=== PATIENT | male | born 1965 | race African-American/Black ===

== ENCOUNTER 2018-08-01 16:19 | Emergency (ER) | payer BC, OTHER | END 2018-08-01 16:52 | disposition home or self-care (01) | LOC: BURERS 16:19 | DX: G57.12 Meralgia paresthetica, left lower limb (principal); E78.5 Hyperlipidemia, unspecified; I10 Essential (primary) hypertension; F17.210 Nicotine dependence, cigarettes, uncomplicated; Z79.899 Other long term (current) drug therapy | CPT/HCPCS: 99283 ==

== ENCOUNTER 2019-04-26 11:41 | Emergency (ER) | payer OTHER ==
[2019-04-26] MEDS ORDERED: Nitroglycerin 0.4 MG TAB 1 EACH ONE (11:51)
[2019-04-26] MEDS ORDERED: Nitroglycerin 50 MG/250 ML BOT 250 ML ONE (11:53)
[2019-04-26 12:12] LABS: #Basophils 0.1 thou/uL (0.0-0.2); #Eosinphils 0.2 thou/uL (0.0-0.7); #Lymphocytes 2.5 thou/uL (1.20-3.40); #Monocytes 0.5 thou/uL (0.11-0.59); #Neutrophils 3.9 thou/uL (1.40-6.50); %Basophils 1.5 % (0.0-1.0); %Lymphocytes 34.2 % (21.0-51.0); %Neutrophils 54.3 % (42.0-75.0); Hemoglobin 14.4 g/dL (14.0-18.0); Mean Corpuscular HGB CONC 31.6 g/dL (32.0-36.0); Mean Corpuscular Hemoglobin 31.4 pg (27.0-31.0); Mean Corpuscular Volume 99.6 fL (78.0-98.0); Mean Platelet Volume 7.1 fL (7.4-10.4); Platelet Count 236 thou/uL (130-400); RBC Distribution Width 12.5 % (11.5-14.5); Red Blood Cell (RBC) Count 4.59 mill/uL (4.70-6.10); White Blood Cell (WBC) Count 7.2 thou/uL (4.8-10.8)
[2019-04-26 12:22] LABS: ALT (SGPT) 33 U/L (8-55); AST (SGOT) 26 U/L (5-34); Albumin 3.8 g/dL (3.5-5.0); Alkaline Phosphatase 83 U/L (40-150); Anion Gap 13 mmol/L (10-20); BUN (Urea Nitrogen) 13 mg/dL (8.4-25.7); Bilirubin, Total 0.5 mg/dL (0.2-1.2); Calc. Creatinine Clearance 0 mL/min (70-130); Calcium 9.3 mg/dL (7.8-10.44); Carbon Dioxide 27 mmol/L (22-29); Chloride 104 mmol/L (98-107); Estimated GFR-MDRD Greater than 90; Globulin 3.4 g/dL (2.4-3.5); Glucose 133 mg/dL (70-105); Lipase 21 U/L (8-78); Potassium 3.7 mmol/L (3.5-5.1); Protein, Total 7.2 g/dL (6.0-8.3); Sodium 140 mmol/L (136-145)
--- NOTE | 2019-04-26 21:09 | RAD ---
PORTABLE CHEST: 04/26/19 An AP portable film at 1206 is compared with a 12/25/10 study. The heart is normal in size and the lungs are clear. No infiltrate or effusion was seen. There is no vascular congestion or edema. IMPRESSION: No acute thoracic finding. POS: HOME
== END 2019-04-26 13:00 | disposition short-term general hospital (02) ==
LOC: BURERS 11:41
DX: R07.9 Chest pain, unspecified (principal); R94.31 Abnormal electrocardiogram [ECG] [EKG]; E78.5 Hyperlipidemia, unspecified; I10 Essential (primary) hypertension; F17.210 Nicotine dependence, cigarettes, uncomplicated; Z79.899 Other long term (current) drug therapy
CPT/HCPCS: 71045; 80053; 83690; 84484; 85025; 93005; 94760; 96365

== ENCOUNTER 2019-05-16 06:45 | Emergency (ER) | payer OTHER ==
[2019-05-16 07:26] LABS: #Basophils 0.1 thou/uL (0.0-0.2); #Eosinphils 0.5 thou/uL (0.0-0.7); #Lymphocytes 2.3 thou/uL (1.20-3.40); #Neutrophils 6.6 thou/uL (1.40-6.50); %Basophils 1.2 % (0.0-1.0); %Eosinophils 4.4 % (0.0-10.0); %Lymphocytes 21.7 % (21.0-51.0); %Monocytes 9.7 % (0.0-10.0); %Neutrophils 62.9 % (42.0-75.0); Hemoglobin 9.6 g/dL (14.0-18.0); Mean Corpuscular HGB CONC 31.7 g/dL (32.0-36.0); Mean Corpuscular Hemoglobin 30.8 pg (27.0-31.0); Mean Platelet Volume 5.4 fL (7.4-10.4); Platelet Count 684 thou/uL (130-400); RBC Distribution Width 13.2 % (11.5-14.5); Red Blood Cell (RBC) Count 3.11 mill/uL (4.70-6.10); White Blood Cell (WBC) Count 10.5 thou/uL (4.8-10.8)
[2019-05-16 07:30] LABS: INR-International Normal Ratio 1.1; PTT 35.5 SEC (22.9-36.1); Prothrombin Time 14.3 SEC (12.0-14.7)
[2019-05-16 07:36] LABS: Anion Gap 13 mmol/L (10-20); BUN (Urea Nitrogen) 13 mg/dL (8.4-25.7); Calc. Creatinine Clearance 0 mL/min (70-130); Calcium 9.2 mg/dL (7.8-10.44); Carbon Dioxide 26 mmol/L (22-29); Chloride 104 mmol/L (98-107); Estimated GFR-MDRD Greater than 90; Glucose 105 mg/dL (70-105); Potassium 4.1 mmol/L (3.5-5.1); Sodium 139 mmol/L (136-145)
[2019-05-16 07:42] LABS: Bilirubin Negative (Negative); Blood, Urine Large (Negative); Clarity Cloudy (Clear); Glucose, Urine (Dipstick) Negative (Negative); Leukocyte Small (Negative); Nitrite Negative (Negative); Protein, Urine (Dipstick) Negative (Neg-Trace); Urobilinogen 0.2 mg/dL (Less than 2)
[2019-05-16 07:53] LABS: Bacteria/HPF 1+ HPF (None Seen); RBC/HPF Greater than 50 HPF (0-3); WBC/HPF 0-3 HPF (0-3)
== END 2019-05-16 08:02 | disposition home or self-care (01) ==
LOC: BURERS 06:45
DX: R31.9 Hematuria, unspecified (principal); E78.5 Hyperlipidemia, unspecified; I10 Essential (primary) hypertension; I25.10 Atherosclerotic heart disease of native coronary artery without angina pectoris; Z87.891 Personal history of nicotine dependence; Z79.82 Long term (current) use of aspirin; Z79.891 Long term (current) use of opiate analgesic; Z79.899 Other long term (current) drug therapy
CPT/HCPCS: 36415; 80048; 81003; 81015; 85025; 85610; 85730; 99283

== ENCOUNTER 2019-09-12 20:08 | Emergency (ER) | payer OTHER, SELFPAY | END 2019-09-12 20:45 | disposition left against medical advice (07) | LOC: BURERS 20:08 | DX: R07.9 Chest pain, unspecified (principal); E78.5 Hyperlipidemia, unspecified; E78.00 Pure hypercholesterolemia, unspecified; I10 Essential (primary) hypertension; I25.10 Atherosclerotic heart disease of native coronary artery without angina pectoris; Z87.891 Personal history of nicotine dependence; Z79.899 Other long term (current) drug therapy; Z79.82 Long term (current) use of aspirin | CPT/HCPCS: 93005 ==

== ENCOUNTER 2020-11-02 16:17 | Emergency (ER) | payer BC, OTHER, SELFPAY ==
[2020-11-02] MEDS ORDERED: Dicyclomine 20 MG TAB ONE (16:37)
[2020-11-03 22:22] LABS: SARS-CoV-2 PCR by NAA Not Detected (NotDetected)
== END 2020-11-02 17:05 | disposition home or self-care (01) ==
LOC: BURERS 16:17
DX: R19.7 Diarrhea, unspecified (principal); R50.9 Fever, unspecified; R10.10 Upper abdominal pain, unspecified; Z20.822 Contact with and (suspected) exposure to COVID-19; E78.5 Hyperlipidemia, unspecified; E78.00 Pure hypercholesterolemia, unspecified; I10 Essential (primary) hypertension; F17.210 Nicotine dependence, cigarettes, uncomplicated
CPT/HCPCS: 87635; 99406; U0003; U0005

== ENCOUNTER 2021-05-05 15:05 | Emergency (ER) | payer BC ==
[2021-05-05] MEDS ORDERED: Ibuprofen 200 MG TAB ONE (15:36)
== END 2021-05-05 16:14 | disposition home or self-care (01) ==
LOC: BURERS 15:05
DX: M65.88 Other synovitis and tenosynovitis, other site (principal); E78.5 Hyperlipidemia, unspecified; I10 Essential (primary) hypertension; E78.00 Pure hypercholesterolemia, unspecified; F17.210 Nicotine dependence, cigarettes, uncomplicated; I25.10 Atherosclerotic heart disease of native coronary artery without angina pectoris; Z79.899 Other long term (current) drug therapy; Z79.82 Long term (current) use of aspirin

== ENCOUNTER 2021-08-04 00:36 | Emergency (ER) | payer BC ==
[2021-08-04 01:32] LABS: #Basophils 0.1 thou/uL (0.0-0.2); #Eosinphils 0.4 thou/uL (0.0-0.7); #Monocytes 0.5 thou/uL (0.11-0.59); %Basophils 1.5 % (0.0-1.0); %Eosinophils 4.6 % (0.0-10.0); %Lymphocytes 49.9 % (21.0-51.0); %Monocytes 6.6 % (0.0-10.0); %Neutrophils 37.4 % (42.0-75.0); Mean Corpuscular HGB CONC 33.3 g/dL (32.0-36.0); Mean Corpuscular Hemoglobin 32.8 pg (27.0-31.0); Mean Corpuscular Volume 98.5 fL (78.0-98.0); Mean Platelet Volume 7.8 fL (7.4-10.4); Platelet Count 240 thou/uL (130-400); RBC Distribution Width 11.9 % (11.5-14.5); Red Blood Cell (RBC) Count 4.26 mill/uL (4.70-6.10)
[2021-08-04 01:36] LABS: ALT (SGPT) 27 U/L (8-55); AST (SGOT) 24 U/L (5-34); Albumin 3.7 g/dL (3.5-5.0); Alkaline Phosphatase 74 U/L (40-110); Anion Gap 10 mmol/L (10-20); BUN (Urea Nitrogen) 14 mg/dL (8.4-25.7); Bilirubin, Total 0.4 mg/dL (0.2-1.2); Calc. Creatinine Clearance 0 mL/min (70-130); Calcium 9.6 mg/dL (7.8-10.44); Carbon Dioxide 29 mmol/L (22-29); Chloride 107 mmol/L (98-107); Globulin 2.3 g/dL (2.4-3.5); Glucose 122 mg/dL (70-105); Potassium 3.3 mmol/L (3.5-5.1); Sodium 143 mmol/L (136-145)
== END 2021-08-04 01:42 | disposition left against medical advice (07) ==
LOC: BURERS 00:36
DX: R00.1 Bradycardia, unspecified (principal); R53.83 Other fatigue; I10 Essential (primary) hypertension; E78.5 Hyperlipidemia, unspecified; F17.210 Nicotine dependence, cigarettes, uncomplicated; Z79.82 Long term (current) use of aspirin
CPT/HCPCS: 71045; 80053; 84443; 84484; 85025; 93005; 94760

== ENCOUNTER 2022-09-09 17:28 | Emergency (ER) | payer BC, OTHER ==
[2022-09-09] MEDS ORDERED: Lidocaine Viscous Sol 2% 15 ml UD Cup ONE (18:26)
[2022-09-09] MEDS ORDERED: Dicyclomine 20 MG TAB ONE (18:26)
[2022-09-09] MEDS ORDERED: Mag-Al Plus 1200 MG/1200 MG/120 MG/30 ML UDCUP ONE (18:26)
== END 2022-09-09 18:34 | disposition home or self-care (01) ==
LOC: BURERS 17:28
DX: R11.2 Nausea with vomiting, unspecified (principal); R10.9 Unspecified abdominal pain; E78.00 Pure hypercholesterolemia, unspecified; I10 Essential (primary) hypertension; F17.210 Nicotine dependence, cigarettes, uncomplicated

== ENCOUNTER 2024-09-14 17:21 | Emergency (ER) | payer OTHER ==
[2024-09-14] MEDS ORDERED: Lidocaine 1% (PF) 30 ML VIAL ONE (17:38)
[2024-09-14] MEDS ORDERED: Bacitracin 1 PK ONE (17:38)
[2024-09-14] MEDS ORDERED: Boostrix 0.5 ML (Tdap) VIAL (>/=7 yrs of age) ONE (18:10)
[2024-09-14] MEDS ORDERED: cloNIDine 0.1 MG TAB ONE (18:16)
[2024-09-14] MEDS ORDERED: Ketorolac Tromethamine 30 MG (1 mL) VIAL ONE (18:17)
[2024-09-14] MEDS ORDERED: Piperacillin/Tazobactam 4.5 GM VIAL ONE (18:17)
[2024-09-14] MEDS ORDERED: Sodium Chloride 0.9% 100 ML ONE (18:17)
== END 2024-09-14 19:48 | disposition home or self-care (01) ==
LOC: BURERS 17:21
DX: S61.256A Open bite of right little finger without damage to nail, initial encounter (principal); S62.616B Displaced fracture of proximal phalanx of right little finger, initial encounter for open fracture; S61.216A Laceration without foreign body of right little finger without damage to nail, initial encounter; I10 Essential (primary) hypertension; R03.0 Elevated blood-pressure reading, without diagnosis of hypertension; E78.00 Pure hypercholesterolemia, unspecified; I25.10 Atherosclerotic heart disease of native coronary artery without angina pectoris; Z23 Encounter for immunization; Z79.899 Other long term (current) drug therapy; Z95.1 Presence of aortocoronary bypass graft; W55.41XA Bitten by pig, initial encounter
CPT/HCPCS: 12001; 90471; 90715; 96365; 96375; J1885; J2543